=== PATIENT | female | born 1940 | race Caucasian/White ===

== ENCOUNTER 2017-05-11 15:47 | Emergency (ER) | payer MEDICARE, BC ==
[~2017-05-11 15:47] MED LIST: ATOR20TA42 PO; LEVO100T4 PO; ST JTAB PO; TYLE500T PO
[2017-05-11 15:54] VITALS: BP 179/74; PULSE 70; RESP 24; O2SAT 99
--- NOTE | 2017-05-11 16:52 | RADRPT ---
EXAM DATE/TIME: 05/11/2017 16:41 [place] COMPARISON: No previous studies available for comparison. INDICATIONS : Lower back pain with no known injury. MEDICAL HISTORY : None. SURGICAL HISTORY : None. ENCOUNTER: Initial ACUITY: 2 days PAIN SCORE: 10/10 LOCATION: Right Lower back. FINDINGS: 2 view examination was performed. Vertebral body height is maintained. No significant spondylolisth esis. Mild curvature of the lumbar spine convex towards the left. Endplate sclerosis is present at L1-L4. Moderate degenerative changes of the posterior elements of L4-S1. Pedicles are seen at all l evels. Hemoclips in the right upper quadrant. CONCLUSION: No evidence of compression deformity or spondylolisthesis. Mike Us MD on May 11, 2017 at 16:49 Board Certified Radiologist. This report was verified electronically.
--- NOTE | 2017-05-11 17:55 | PD ---
HPI Chief Complaint: Back/ Neck Pain or Injury Time Seen by Provider: 17:51 Travel History International Travel<30 days: No Contact w/Intl Traveler<30days: No Traveled to known affect area: No History of Present Illness HPI 76-year-old female presents to the emergency department with complaint of right lower back pain 2 days. Denies urinary symptoms. Denies fever, vomiting, diarrhea, chills, abdominal pain. Denies radiation of pain. No known injury. Says she had similar pain 6 years ago and was treated with prednisone which helped. Denies paresthesias, loss of sensation to bilateral lower extremities. Denies encopresis, incontinence, saddle anesthesias. Denies IV drug use or cancer. Has been taking Advil for symptom management. Pain is constant and worse with movement. Rates pain 10/10. Describes a stabbing sensation. Says the pain is not reproducible when she pushes on the area. Says the pain is deep. Primary care provider is Dr. Brown. No known allergies. History of hypothyroidism. Has no other medical complaints. No other modifying factors or associated signs and symptoms. PFSH Past Medical History Blood Disorders: No Cancer: No Cardiovascular Problems: No Cerebrovascular Accident: Yes (NO DEFICITS/RESIDUAL ) Diabetes: No Diminished Hearing: No Endocrine: Yes Genitourinary: No Immune Disorder: No Musculoskeletal: No Neurologic: No Psychiatric: No Reproductive: No Respiratory: No Immunizations Current: No Thyroid Disease: Yes Menopausal: Yes Past Surgical History Cholecystectomy: Yes Genitourinary Surgery: Yes (right kidney removed) Tonsillectomy: Yes Other Surgery: Yes (LEFT KNEE , RIGHT KIDNEY REMOVED) Social History Alcohol Use: No Tobacco Use: No (quit over 50 years ago) Substance Use: No Allergies-Medications (Allergen,Severity, Reaction): Coded Allergies: No Known Allergies (Unverified , 01/08/16) Reported Meds & Prescriptions Reported Meds & Active Scripts Active Medrol Dosepak (Methylprednisolone) 4 Mg Dspk 4 Mg PO DIRECTED Per Pharmacist direction Tramadol (Tramadol HCl) 50 Mg Tab 50 Mg PO Q4H PRN Robaxin (Methocarbamol) 500 Mg Tab 500 Mg PO QID PRN Acetaminophen 500 Mg Tab 500 Mg PO Q6HR PRN Reported Aspirin Ec Low Strength (Aspirin) 81 Mg Tab 81 Mg PO DAILY Lipitor (Atorvastatin Calcium) 20 Mg Tab 20 Mg PO HS Levothyroxine 100 mcg (Levothyroxine Sodium) 100 Mcg Tab 100 Mcg PO DAILY Review of Systems Except as stated in HPI: all other systems reviewed are Neg Physical Exam Narrative Physical exam is limited because the patient refuses to move. She is sitting in a wheelchair. She refuses to get into the bed. GENERAL: Well-nourished, well-developed elderly, female patient, in no acute distress; afebrile, nontoxic-appearing SKIN: Warm and dry. HEAD: Atraumatic. Normocephalic. EYES: Pupils equal and round. No scleral icterus. No injection or drainage. ENT: Mucosa pink and moist. Airway patent. NECK: Trachea midline. CARDIOVASCULAR: Regular rate and rhythm. No murmur appreciated.. RESPIRATORY: No accessory muscle use. Breath sounds clear and equal bilaterally. GASTROINTESTINAL: Abdomen soft, non-tender, nondistended. Positive bowel sounds. No hepato-splenomegaly, or palpable masses. No guarding. MUSCULOSKELETAL: Bilateral lower extremities supple and non-tense with 2+ pedal pulses and sensory intact. Sitting up in wheelchair. No obvious deformities. No clubbing. No cyanosis. No edema. BACK: No right-sided CVA tenderness. No midline tenderness on palpation of the lumbar or thoracic spine. No reproducible tenderness on palpation of right lumbar area. No obvious deformities. NEUROLOGICAL: Awake and alert. Oriented 3. No obvious cranial nerve deficits. Motor grossly within normal limits. Normal speech. Moves all extremities. 5/5 strength to all extremities. Sensory intact. PSYCHIATRIC: Appropriate mood and affect; insight and judgment normal. Data Data Last Documented VS Vital Signs Date Time Temp Pulse Resp B/P (MAP) Pulse Ox O2 Delivery O2 Flow Rate FiO2 05/11/17 19:23 05/11/17 15:54 70 24 99 Orders Orders Spine, Lumbar - Ltd (Ap & Lat) (05/11/17 ) Ketorolac Inj (Toradol Inj) (05/11/17 18:15) Orphenadrine Inj (Norflex Inj) (05/11/17 18:15) Urinalysis - C+S If Indicated (05/11/17 18:09) Ed Discharge Order (05/11/17 19:07) Labs Laboratory Tests Test 05/11/17 18:10 Urine Color LIGHT-YELLOW Urine Turbidity CLEAR Urine pH 5.0 Urine Specific [place] 1.004 Urine Protein NEG mg/dL Urine Glucose (UA) NEG mg/dL Urine Ketones NEG mg/dL Urine Occult Blood NEG Urine Nitrite NEG Urine Bilirubin NEG Urine Urobilinogen LESS THAN 2.0 MG/DL Urine Leukocyte Esterase SMALL Urine RBC LESS THAN 1 /hpf Urine WBC LESS THAN 1 /hpf Urine Squamous Epithelial Cells 1 /hpf Microscopic Urinalysis Comment CULT NOT INDICATED MDM Medical Decision Making Medical Screen Exam Complete: Yes Emergency Medical Condition: Yes Medical Record Reviewed: Yes Differential Diagnosis Low back strain, sciatica, muscle spasm of low back, pyelonephritis Narrative Course 76-year-old female with right-sided low back pain. Physical exam is limited because the patient refuses to move. She denies urinary symptoms but I will do a urinalysis to rule out pyelonephritis. No midline tenderness on palpation of the lumbar or thoracic spine. Toradol, Norflex, urinalysis ordered. 1754: Lumbar spine x-ray concludes: Reversal of the upper cervical lordosis without evidence of spondylolisthesis or compression deformity; Otherwise negative trauma CT cervical spine. The patient's family wants her admitted. Dr. Downs agreed to have the patient admitted, but the patient does not want to stay and wants to go home. She wants pain medications and she says she will follow-up with her primary care provider tomorrow. Tramadol and Robaxin prescribed for home. Urinalysis without signs of infection. Instructed patient to follow up with primary care provider. Patient verbalizes understanding and agreement with treatment plan. Patient is medically cleared and stable for discharge. Discussed reasons to return to the emergency department. Patient agrees with treatment plan. The patients vital signs are stable and the patient is stable for outpatient follow-up and treatment. Patient discharged home, stable and in no acute distress. Diagnosis Primary Impression: Back pain Qualified Codes: M54.5 - Low back pain Referrals: Primary Care Physician Patient Instructions: Acute Low Back Pain (ED), General Instructions Additional Instructions: Tylenol or ibuprofen as directed and as needed for pain Robaxin as prescribed and as needed for muscle spasms Heating pad and/or ice to affected area to reduce pain Avoid aggravating activities; increase activity as tolerated Follow-up with primary care provider Return to emergency department immediately with worsening of symptoms Med/Other Pt SpecificInfo: Prescription(s) given Scripts Methylprednisolone Dosepak (Medrol Dosepak) 4 Mg Dspk 4 MG PO DIRECTED, #1 DSPK 0 Refills Per Pharmacist direction Prov: Masha Méndez 05/11/17 Tramadol (Tramadol) 50 Mg Tab 50 MG PO Q4H Y for PAIN, #12 TAB 0 Refills Prov: Masha Méndez 05/11/17 Methocarbamol (Robaxin) 500 Mg Tab 500 MG PO QID Y for MUSCLE SPASM, #30 TAB 0 Refills Prov: Masha Méndez 05/11/17 Disposition: 01 DISCHARGE HOME Condition: Stable Masha Méndez May 11, 2017 17:55
[2017-05-11] MEDS ORDERED: KETOROLAC TROMETHAMINE 60 MG/2 ML (IM) VIAL IM ONE (18:15)
[2017-05-11] MEDS ORDERED: ORPHENADRINE INJ 60 MG/2 ML AMP IM ONE (18:15)
[2017-05-11] MEDS ORDERED: TRAM50TA PO (18:49)
[2017-05-11] MEDS ORDERED: ROBA500T PO (18:49)
[2017-05-11] MEDS ORDERED: MEDR4PAK PO (18:56)
[2017-05-11 19:00] LABS: BILIRUBIN, URINE NEG (NEG); BLOOD, URINE NEG (NEG); GLUCOSE,URINE NEG (NEG); KETONE, URINE NEG (NEG); NITRITE,URINE NEG (NEG); SQUAMOUS EPITHELIAL CELL URINE 1 /hpf (0-5); URINE COLOR LIGHT-YELLOW (YELLW/STRAW); URINE LEUKOCYTE ESTERASE SMALL (NEG)
== END 2017-05-11 19:24 | disposition home or self-care (01) ==
LOC: NEPD 15:47
DX: M54.5 Low back pain (principal)
CPT/HCPCS: 72100; 81001; 96372; 99284; J1885; J2360